=== PATIENT | female | born 1950 | race Caucasian/White ===

== ENCOUNTER 2016-08-15 11:23 | Day surgery (SDC) | payer OTHER ==
--- NOTE | ~2016-08-15 | EGD ---
EGD REPORT [facility] [address] [place] [place] [id number] NAME: RICHARD VILLASENOR : [birth year] STATUS : [place] [facility] [place]#: [id number] AGE: 65 ADM/REG DATE : 08/15/16 MR#: [id number] REPORT SERV DATE: 08/15/16 DICTATED BY: NIK ROGER DATE: 08/15/16 REPORT STATUS : Draft [facility]ANS[facility]IBED BY: [facility] DATE: 08/15/16 [facility] Center Patient Name: Richard Villasenor Date of : 1950 Attending MD: DARIUS ROGER MD Procedure Date No Time: 08/15/2016 Procedure: Colonoscopy Indications: High risk colon cancer surveillance: Personal history of colonic polyps, Last colonoscopy: September 2013 Referring MD: MELBA JONES Medicines: See the Anesthesia note for documentation of the administered medications Complications: No immediate complications. Estimated blood loss: None. Procedure: Pre-Anesthesia Assessment: - ASA Grade Assessment: III - A patient with severe systemic disease. - Prior to the procedure, a History and Physical was performed, and patient medications and allergies were reviewed. The patient's tolerance of previous anesthesia was also reviewed. The risks and benefits of the procedure and the sedation options and risks were discussed with the patient. All questions were answered, and informed consent was obtained. Prior Anticoagulants: The patient has taken no previous anticoagulant or antiplatelet agents. After reviewing the risks and benefits, the patient was deemed in satisfactory condition to undergo the procedure. After I obtained informed consent, the scope was passed under direct vision. Throughout the procedure, the patient's blood pressure, pulse, and oxygen saturations were monitored continuously. The PCF [id number] was introduced through the anus and advanced to the terminal ileum. The ileocecal valve, appendiceal orifice and rectum were photographed. The entire colon was examined. The colonoscopy was performed without difficulty. The patient tolerated the procedure well. The quality of the bowel preparation was adequate. Findings: The perianal and digital rectal examinations were normal. Three sessile polyps were found in the transverse colon. The polyps were small in size. These polyps were removed with a cold snare. Resection and retrieval were complete. Non-bleeding internal hemorrhoids were found during retroflexion and were Grade I (internal hemorrhoids that do not prolapse). EGD REPORT [address] [address] NAME: RICHARD VILLASENOR : [birth year] STATUS : REG [facility]#: [id number] AGE: 65 ADM/REG DATE : 08/15/16 MR#: [id number] REPORT SERV DATE: 08/15/16 DICTATED BY: NIK ROGER DATE: 08/15/16 REPORT STATUS : Draft [facility]ANS[facility]IBED BY: [facility] DATE: 08/15/16 Two sessile polyps were found in the rectum. The polyps were small in size. These polyps were removed with a cold snare. Resection and retrieval were complete. The terminal ileum appeared normal. Impression: - Three small polyps in the transverse colon. Resected and retrieved. - Non-bleeding internal hemorrhoids. - Two benign appearing small, non-bleeding polyps in the rectum. Resected and retrieved. - The examined portion of the ileum was normal. Recommendation: - Patient has a contact number available for emergencies. The signs and symptoms of potential delayed complications were discussed with the patient. Return to normal activities tomorrow. Written discharge instructions were provided to the patient. - Regular diet. - Discharge patient to home. - Continue present medications. - Await pathology results. - Repeat colonoscopy in 3 years for surveillance. Procedure Code(s): --- Professional --- 26246, Colonoscopy, flexible, proximal to splenic flexure; with removal of tumor(s), polyp(s), or other lesion(s) by snare technique Diagnosis Code(s): --- Professional --- K62.1, Rectal polyp D12.3, Benign neoplasm of transverse colon K64.0, First degree hemorrhoids Z86.010, Personal history of colonic polyps CPT copyright 2013 [employer]. All rights reserved. The codes documented in this report are preliminary and upon well digger review may be revised to meet current compliance requirements. DARIUS ROGER MD 08/15/2016 2:23 PM This report has been signed electronically. Number of Addenda: 0 Note Initiated On: 08/15/2016 1:46 PM EGD REPORT [facility] [address] [id number] NAME: RICHARD VILLASENOR : [birth year] STATUS : [place] [facility] [place] PAT#: [id number] AGE: 65 ADM/REG DATE : 08/15/16 MR#: [id number] REPORT SERV DATE: 08/15/16 DICTATED BY: NIK ROGER DATE: 08/15/16 REPORT STATUS : Draft TRANSCRIBED BY: [employer] DATE: 08/15/16 Scope Withdrawal Time 0 hours 16 minutes 42 seconds [address] [id number]
[~2016-08-15 11:23] MED LIST: ASA5GR PO; CAT2 PO; COREG25 PO; COZAAR100 MG PO; FIORICET PO; LOP50 PO; NORCO1 TAB PO; NORV10 PO; PR25 PO
== END 2016-08-15 23:59 | disposition home or self-care (01) ==
LOC: DMU 11:23
PROVIDERS: Internal Medicine Gastroenterology
PROC: 0DBP8ZZ Excision of Rectum, Via Natural or Artificial Opening Endoscopic (ICD-10-PCS; 2016-08-15)
PROC: 0DBL8ZZ Excision of Transverse Colon, Via Natural or Artificial Opening Endoscopic (ICD-10-PCS; principal; 2016-08-15 13:30)
DX: Z12.11 Encounter for screening for malignant neoplasm of colon (principal); D12.3 Benign neoplasm of transverse colon; K62.1 Rectal polyp; F17.210 Nicotine dependence, cigarettes, uncomplicated; J44.9 Chronic obstructive pulmonary disease, unspecified; I11.0 Hypertensive heart disease with heart failure; I50.9 Heart failure, unspecified; Z88.8 Allergy status to other drugs, medicaments and biological substances; Z79.82 Long term (current) use of aspirin; Z79.891 Long term (current) use of opiate analgesic; Z79.899 Other long term (current) drug therapy
CPT/HCPCS: 88305